=== PATIENT | male | born 1955 | race Caucasian/White ===

== ENCOUNTER 2021-11-04 10:49 | Outpatient (REF) | payer MEDICARE, SELFPAY | END 2021-11-04 10:50 | disposition home or self-care (01) | LOC: HO.WFDLDS 10:49 | PROVIDERS: Visit Provider Internal Medicine | DX: U07.1 COVID-19 (principal); Z20.822 Contact with and (suspected) exposure to COVID-19 | CPT/HCPCS: C9803; U0003; U0005 ==